=== PATIENT | female | born 1940 | race Caucasian/White ===

== ENCOUNTER → 2016-08-06 | Outpatient (CLI) | payer OTHER ==
[~2016-08-06] MED LIST: ACCUPRIL40 MG PO; ACTONEL PO; ADULT LOW DOSE81 MG PO; ALORA1 EAC1 TD; ALPRAZOLAM 0.50.5 M1 PO; ALPRAZOLAM1 M1 PO; AMBIEN 5 MG TABL5 M1 PO; AVAPRO 150 MG150 MG PO; BISOPROLOL FUMAR5 MG PO; BYSTOLIC PO; BYSTOLIC10 MG PO; CARAFATE 1 GM TA1 G1 PO; CARBAMAZEPINE100 MG PO; CARBAMAZEPINE200 M2 PO; CARDIZEM CD240 MG PO; CITRATE OF MAG296 ML PO; CLONIDINE PO; COLACE100 MG PO; ESTRACE0.5 MG PO; GLUCOPHAGE500 MG PO; GLUCOTROL5 MG PO; HYDRALAZINE 2525 M1 PO; HYDRALAZINE 5050 MG PO; HYDROCHLOROTHIA25 M1 PO; JANUMET XR 1001 EACH PO; LUNESTA2 MG PO; MIRALAX255 GM PO; NEXIUM40 MG; NICOTINE TRANSD21 M1 TD; NORCO 5-325 TA1 EACH PO; NORVASC5 MG PO; ONDANSETRON HCL4 M2 PO; PHENERGAN 25 MG25 M1 PO; PINDOLOL PO; PROTONIX40 M4 PO; PROTONIX40 MG PO; RESTORIL30 MG PO; SERTRALINE HCL50 MG PO; TAZTIA XT PO; VICODIN 5-5001 EACH PO; VIOKASE PO; VITAMIN D1000 UNI1 PO; XANAX 0.5 MG0.5 MG PO; ZANTAC 150MG T150 M1 PO; ZOCOR 20 MG TAB20 M1 PO; ZOFRAN 4 MG ORAL4 MG PO; ZOFRAN ODT4 MG PO; ZOFRAN4 MG PO; ZOLOFT 50 MG TA50 M1 PO; ZPAK PO
== END ==
LOC: RAD 07:46
DX: R92.8 Other abnormal and inconclusive findings on diagnostic imaging of breast (principal)

== ENCOUNTER → 2016-10-13 | Outpatient (CLI) | payer OTHER ==
[~2016-10-13] VITALS: Ht 167.6 cm; Wt 81.2 kg
[~2016-10-13] MED LIST changes: +ANASTROZOLE1 MG PO; +AUGMENTIN 500-1 EACH PO; +HYDROCORTISONE30 G9 RECTAL; +SERTRALINE HCL100 MG PO
--- NOTE | ~2016-10-13 | S ---
[facility] [place] [address] SURGICAL PATH RPT PROCEDURE Name: TOMOLGAAZEB CRISTIN Room #: REG CL M.Theresa.#: [id number] Admission: 10/13/16 Date of : 38 Discharge: Report #: [id number] Path Case #: [id number] PATHOLOGY REPORT COLLECTION DATE: 10/13/2016 RECEIVED DATE: 10/13/2016 SUBMITTING PHYS: Dr. Tomy Gil OTHER PHYS: Dr. Edward Rubin SPECIMEN(S) RECEIVED: A.Bx of distal esophagus * * * * * * * * * * * * FINAL DIAGNOSIS: Esophagus, distal biopsy: - Squamocolumnar epithelium with mild chronic submucosal inflammation. - No evidence of intestinal metaplasia. (SKM:[place] [employer]; 10/14/2016) PATHOLOGIST: Philip Kamara M.D. REPORT ELECTRONICALLY SIGNED BY: Philip Kamara M.D. DATE/TIME: 10/14/2016 11:30 * * * * * * * * * * * * GROSS PATHOLOGY: Received in formalin labeled "Azeb Tom, distal esophagus, biopsy," are 2 segments of antoine soft tissue measuring 0.5 cm in aggregate dimensions and ranging from 0.2 to 0.3 cm in maximum dimension. The specimen is submitted entirely in cassette A1. (SNA; 10/13/2016) CLINICAL HISTORY: History of Zamora's INITIAL CPT CODE(S): A; 85802 Professional services performed by [facility] at [facility] [employer]) [place], [place] [address] Technical services performed by [facility] at [address] [place] [address], [address] [address]. [facility] [address] [place] [address] SURGICAL PATH RPT PROCEDURE Name: AZEB TOM Room #: REG OMAR Wise#: [id number] Admission: 10/13/16 Date of : 39 Discharge: Report #: [id number] Path Case #: [id number] [facility] [address] [address] PHONE: [phone] DIRECTOR: Milton Elena M.D. * * * END OF REPORT * * *
== END | disposition home or self-care (01) ==
LOC: GI 08:04
DX: K22.70 Barrett's esophagus without dysplasia (principal); K21.9 Gastro-esophageal reflux disease without esophagitis
CPT/HCPCS: 62110; 62900

== ENCOUNTER → 2017-03-03 | Outpatient (CLI) | payer OTHER ==
[~2017-03-03] VITALS: Ht 167.6 cm; Wt 67.5 kg
[~2017-03-03] MED LIST changes: +CYMBALTA30 MG PO; +MOBIC7.5 MG PO; +TRAMADOL 50 MG50 MG PO
--- NOTE | ~2017-03-03 | HPC ---
[facility] [place] [address] PAIN MANAGEMENT CONSULTATION Name: BENDERAMI CEJAR CRISTIN Room #: REG [facility].#: [id number] Admission: 03/03/17 Attend Phys: Ra Boston DO Discharge: Date of : 39 Report #: [id number] THIS REPORT FOR: //name// CC: Edward Boston The patient is a 76-year-old female prior seen in the pain on clinic 01/10/2017 diagnosed with bilateral SI joint dysfunction, thoracolumbar scoliosis and spondylosis, lumbar radiculopathy secondary to spinal stenosis and history of cervical radiculopathy. The patient was originally consulted on 12/31/2016. We progressed to bilateral SI joint injections at last visit (01/10/2017). The patient returns to the pain clinic today noting she had about a 100% relief following the bilateral SI joint injections for 6 weeks. Pain has recurred, 7 on a 10. She rates the pain 7 on a VAS. Pain is a little different though, it is noted more in the low back area and some radiation into the left thigh. She notes the pain is exacerbated with standing and walking. PHYSICAL EXAMINATION: Shows 76-year-old female, BMI is 24 kilograms per meter squared. Vital signs stable. Rises from chair using armrest. Tenderness over the SI joints is diminished. Pain is noted at the L4 area and below. Pain is exacerbated with rotation and side bending. Truman test is negative. Straight leg raise is negative. ASSESSMENT: Sacroiliac joint dysfunction by clinical exam, the patient had 100% relief for about 6 weeks. Pain began to recur. Now it appears to be a little higher; however, then prior exam and Truman test is negative at this time. ASSESSMENT: Symptomatic lumbar spondylosis in a patient with significant thoracolumbar scoliosis. RECOMMENDATION: After discussion with the patient today, we have elected to move forward with bilateral L4-L5 and L5-S1 facet joint injections under fluoroscopy. We will see if we can get a little further improvement. We will have the patient follow up in about 3-4 weeks for reevaluation. We will consider referral for SI joint fusion if the facets do not afford good relief given the excellent relief with the SI joint injection at last visit. ASSESSMENT: Symptomatic lumbar spondylosis. PROCEDURE: Bilateral L4-L5 and L5-S1 facet joint injection under fluoroscopy. PROCEDURE: After written informed consent was obtained, the patient was taken to the fluoroscopy suite and placed in prone position. After sterile prep and drape, skin was raised. A 22-gauge stylet needle was placed to contact the inferior aspect of the left L4-L5 and left L5-S1 facet joint. Negative [address] [address] PAIN MANAGEMENT CONSULTATION Name: AZEB BENDER Room #: REG OMAR Wise#: [id number] Admission: 03/03/17 Attend Phys: Ra Boston DO Discharge: Date of : 39 Report #: [id number] aspiration was accomplished, 20 mg triamcinolone plus 1 mL of 0.5% preservative free bupivacaine was injected. [place] were removed. C-arm was turned oblique to the right and the procedure was repeated at the right L4-L5 and L5-S1 facet joints. After all four needles were removed, the area was cleansed and Band-Aids applied. The patient was monitored for an appropriate period of time, allowed to ambulate to recovery room, discharge in good and stable condition. The patient will monitor pain score Fluoroscopy time was approximately 20 seconds. <ELECTRONICALLY SIGNED> By: Ra Boston DO 03/04/17 0650 1610 0518 Ra Boston DO /nt
[2017-03-03 10:05] VITALS: BP 121/75
== END | disposition home or self-care (01) ==
LOC: PAIN 07:03
DX: M47.816 Spondylosis without myelopathy or radiculopathy, lumbar region (principal); M53.3 Sacrococcygeal disorders, not elsewhere classified; M41.85 Other forms of scoliosis, thoracolumbar region; G89.29 Other chronic pain; F17.210 Nicotine dependence, cigarettes, uncomplicated; Z88.2 Allergy status to sulfonamides; Z88.0 Allergy status to penicillin; Z79.899 Other long term (current) drug therapy; Z98.890 Other specified postprocedural states

== ENCOUNTER → 2017-04-08 | Outpatient (CLI) | payer OTHER ==
[~2017-04-08] VITALS: Ht 167.6 cm; Wt 68.0 kg
[~2017-04-08] MED LIST changes: -CYMBALTA30 MG PO; +CYMBALTA60 MG PO; +ZANAFLEX2 MG PO
--- NOTE | ~2017-04-08 | HPC ---
[facility] [place] [address] PAIN MANAGEMENT CONSULTATION Name: NAPOLEONAZEBABDULKADIR AMARAL Room #: REG [facility] [id number] Admission: 04/08/17 Attend Phys: Ra Boston DO Discharge: Date of : 39 Report #: [id number] THIS REPORT FOR: //name// CC: Edward Boston PAIN CLINIC NOTE The patient is a 76-year-old female, prior seen on 03/03/2017, diagnosed with thoracolumbar scoliosis, spondylosis, history of lumbar radiculopathy secondary to spinal stenosis, history of cervical radiculopathy, SI mediated pain, and myofascial pain. We did L4-L5 and L5-S1 facet joint injections at last visit. Prior we done bilateral SI joint injections back in December. Returns to pain clinic today, the patient notes that the lumbar facet joint injections afforded 80% relief for 3-4 weeks. Pain is continuing to the much larger area, has a lot of pain in the right mid back from about T7 or T8 down to the sacrum. She has trigger points in the thoracic paravertebral muscles, lumbar paravertebral muscles overlying latissimus dorsi and the infraspinatus muscle all on the right. Rates the pain an 8 on a VAS. She has a history of lumbar facet arthrosis due to scoliosis, no other OA or RA is applicable. BMI is 24.2 kilograms per meter squared. Vital signs are stable. Again, pain intensity is 8 on a VAS. She has not fallen in the last 3 months. She is hypertensive and medicines were reconciled. She does not use chronic opiates. ASSESSMENT: Component of myofascial pain with ongoing thoracolumbar scoliosis and spondylosis. RECOMMENDATIONS: 1. Trigger point injections x 4 today. 2. Increase Cymbalta from 30 to 60 mg. 3. We will add tizanidine 2 mg t.i.d. for spasm. Ice to the area, follow up p.r.n. PROCEDURE: Trigger point injections x 4. PROCEDURE: After written informed consent was obtained, the patient was placed in the prone position. Skin overlying the tender area was cleansed with alcohol. A 25-gauge needle was used to inject 40 mg triamcinolone plus 5 mL of 0.5% preservative-free bupivacaine plus 5 mL of 1.5% preservative-free Xylocaine with 1:200,000 epinephrine into 4 discrete trigger points including the right thoracic paravertebral muscles (T7 to T12. Right lumbar paravertebral muscles (L1 through L3) overlying latissimus dorsi and right infraspinatus muscle groups. [address] [address] PAIN MANAGEMENT CONSULTATION Name: AZEB BENDER Room #: REG [facility]#: [id number] Admission: 04/08/17 Attend Phys: Ra Boston DO Discharge: Date of : 39 Report #: [id number] [place] were removed. The area was cleansed and Band-Aids applied. The patient monitored for an appropriate period of time, discharged in good and stable condition, noting incremental improvement in baseline pain. <ELECTRONICALLY SIGNED> By: Ra Boston DO 04/11/17 1026 1324 2240 Ra Boston DO /nt
[2017-04-08 11:20] VITALS: BP 102/61
== END | disposition home or self-care (01) ==
LOC: PAIN 03-24 10:52
DX: M79.1 Myalgia (principal); M41.85 Other forms of scoliosis, thoracolumbar region; M47.895 Other spondylosis, thoracolumbar region; G89.29 Other chronic pain; F17.210 Nicotine dependence, cigarettes, uncomplicated; Z88.2 Allergy status to sulfonamides; Z79.899 Other long term (current) drug therapy; Z88.8 Allergy status to other drugs, medicaments and biological substances; Z98.890 Other specified postprocedural states

== ENCOUNTER → 2017-04-14 | Outpatient (CLI) | payer OTHER | LOC: RAD 00:25 | DX: C50.912 Malignant neoplasm of unspecified site of left female breast (principal); Z98.890 Other specified postprocedural states ==

== ENCOUNTER → 2017-07-11 | Outpatient (CLI) | payer OTHER ==
[~2017-07-11] VITALS: Ht 167.6 cm; Wt 76.7 kg
--- NOTE | ~2017-07-11 | HPC ---
[facility] [place] [address] PAIN MANAGEMENT CONSULTATION Name: NAPOLEONAZEB JANE Room #: [facility] [id number] Admission: 07/11/17 Attend Phys: Ra Boston DO Discharge: Date of : 39 Report #: [id number] THIS REPORT FOR: //name// CC: Edward Boston The patient is a 76-year-old female prior seen in the pain clinic on 04/08/2017. Typically treated for thoracolumbar scoliosis, spondylosis, history of lumbar radiculopathy secondary to spinal stenosis and SI mediated pain. We have prior done L4-L5 and L5-S1 facet joint injections back in February. Last visit, we did some trigger point injections for myofascial pain. The patient returns to the pain clinic today noting prior injections did afford good relief. She still, however, has significant pain in the midthoracic area. Pain is exacerbated with standing, walking and bending. She rates her pain as a 6 on a VAS. She specifically indicates 70% relief for 2 months from prior trigger point injections. PHYSICAL EXAMINATION: Shows 76-year-old female, BMI is 27.3 kilograms per meter squared. Blood pressure 132/64, pulse 53 and respirations 14. Rises from chair using armrest. Lower extremity strength is generally symmetric. Marked thoracolumbar scoliosis and spondylosis with significant muscle spasm, tenderness in the right thoracic paravertebral muscles, upper lumbar paravertebral muscles and overlying latissimus dorsi. Rotation does exacerbate pain somewhat. We reviewed diagnostic findings including thoracolumbar cervical x-rays from 12/10/2016. She has levoscoliosis of the thoracic spine with apex of the curve at T8, dextrocurvature of the thoracolumbar spine centered at L1-L2. Compensatory levocurvature again at L5-S1. Moderate to severe right T8-T9 neural foraminal stenosis. ASSESSMENT: Symptomatic thoracolumbar scoliosis and spondylosis, myofascial pain component, possible component of right thoracic radicular pain. RECOMMENDATIONS: I had a discussion with the patient today. We elected to proceed with trigger point injections x 3, right thoracic paravertebral muscles, upper lumbar paravertebral muscles and overlying latissimus dorsi. Continue with ice, range of motion and stretching. The patient is doing well on Cymbalta 60 mg 1 a day. She believes that her primary care physician, Dr. Rubin has taken overriding for this. If the pharmacy calls, we will be happy to phone in a prescription for Cymbalta 60 mg 1 a day, dispensed 30 tablets with 5 refills. ASSESSMENT: Symptomatic myofascial pain/ PROCEDURE: Trigger point injections x 3. [address] [address] PAIN MANAGEMENT CONSULTATION Name: AEZB BENDER Room #: REG CLI Frandy#: [id number] Admission: 07/11/17 Attend Phys: Ra Boston DO Discharge: Date of : 39 Report #: [id number] PROCEDURE: After written informed consent was obtained, the patient was placed in the prone position. Three discrete muscle groups were identified. 1. The mid to lower thoracic paravertebral muscles 2. Upper lumbar paravertebral muscles. 3. Overlying latissimus dorsi on the right side were identified, cleansed with alcohol. A 25-gauge needle was used to inject a total of 40 mg triamcinolone plus 5 mL of 0.5% preservative-free bupivacaine plus 5 mL of 1.5% preservative-free lidocaine with 1:200,000 epinephrine. Injectate was dispensed equally amongst the three muscle groups. All needles were removed. The area was cleansed. Band-Aid was applied. The patient was told to use ice to the area today. Discharged in good and stable condition noting dramatic improvement of baseline pain. <ELECTRONICALLY SIGNED> By: Ra Boston DO 07/13/17 0803 1236 2130 Ra Boston DO /nt
[2017-07-11 10:39] VITALS: BP 132/64
== END | disposition home or self-care (01) ==
LOC: PAIN 08:04
DX: M79.1 Myalgia (principal); G89.29 Other chronic pain; M41.85 Other forms of scoliosis, thoracolumbar region; M47.896 Other spondylosis, lumbar region; F17.210 Nicotine dependence, cigarettes, uncomplicated; Z88.2 Allergy status to sulfonamides; Z98.890 Other specified postprocedural states; Z88.8 Allergy status to other drugs, medicaments and biological substances; Z79.899 Other long term (current) drug therapy

== ENCOUNTER → 2017-09-27 | Outpatient (CLI) | payer OTHER | LOC: RAD | DX: C50.912 Malignant neoplasm of unspecified site of left female breast (principal) ==

== ENCOUNTER → 2018-08-28 | Outpatient (CLI) | payer OTHER | LOC: RAD 00:46 | DX: C50.112 Malignant neoplasm of central portion of left female breast (principal); R92.2 Inconclusive mammogram; Z85.038 Personal history of other malignant neoplasm of large intestine ==

== ENCOUNTER → 2018-10-04 | Outpatient (CLI) | payer OTHER ==
[~2018-10-04] VITALS: Ht 167.6 cm; Wt 79.9 kg
--- NOTE | ~2018-10-04 | HPC ---
[facility] [place] [address] PAIN MANAGEMENT CONSULTATION Name: AZEB BENDER Room #: REG [facility].#: [id number] Admission: 10/04/18 ������������������ Attend Phys: Sameer Boston DO Discharge: ������������������ Date of : 39 Report #: [id number] THIS REPORT FOR: //name// CC: Shahab Leon [facility] DATE OF SERVICE: 10/04/2018 REFERRING PHYSICIAN: Dr. Solano. CHIEF COMPLAINT: Bilateral upper buttock pain, posterolateral thigh pain. HISTORY OF PRESENT ILLNESS: As you know, the patient is a 78-year-old female who returns today in followup visit with recurrent bilateral upper buttock and posterolateral thigh pain. She was treated by my partner, Dr. aR Boston in 2017 for bilateral sacroiliac joint dysfunction and facet arthropathy of the lumbar spine. She did very well with the bilateral SI joint injections reporting near 100% improvement in overall pain in that area. She returns today in followup visit with recurrence of bilateral SI joint dysfunction. She is complaining of pain level of 7/10. She has not sought further evaluation to her PCP and has been lost to follow up visit to our clinic since trigger point injections that were provided a year and a half ago. She returns today to begin the process of preapproval for bilateral SI joint injections under fluoroscopic guidance to address sacroiliac insufficiency. The patient is describing pain as chronic and aching in sensation, exacerbated with standing, cooking, vacuuming and improves with lying down and sitting. The patient returns today to begin the process of preapproval. ALLERGIES: SULFA, CLAVULANIC ACID, AMOXICILLIN. CURRENT MEDICATIONS: Duloxetine 60 mg once a day, anastrozole 1 mg once a day, pantoprazole 40 mg per day, cholecalciferol 1000 units per day, Janumet 100/1000 mg once a day, irbesartan 150 mg per day, amlodipine 5 mg per day, hydralazine 50 mg t.i.d., alprazolam 0.5 mg p.r.n., and temazepam 30 mg p.o. at bedtime. SOCIAL HISTORY: The patient denies tobacco, alcohol, IV or illicit drug use. She is unaccompanied today. She is retired. IMAGING: No imaging available. PQRS: The patient has known osteoarthritic changes of the lumbar spine, bilateral SI joints. No rheumatoid arthritis. She is placing pain intensity at 7/10. She is not a fall risk, has not had a fall in the last 3 months. She is not on blood thinners, but is treated for hypertension. She is not on chronic [address] [address] PAIN MANAGEMENT CONSULTATION Name: AZEB BENDER Room #: REG CL M.Theresa.#: [id number] Admission: 10/04/18 ������������������ Attend Phys: Sameer Boston DO Discharge: ������������������ Date of : 39 Report #: [id number] opioids, but does have a low to moderate risk of opioid addiction. She is placing pain impact score at 51/70, indicating severe interference of daily activities secondary to pain. PHYSICAL EXAMINATION: VITAL SIGNS: Blood pressure 140/73, pulse is 60, respiratory rate 16 and unlabored. The patient is 97% on room air. Height 5 feet 6 inches tall, weight 176.2 pounds, BMI calculated 28.5. GENERAL: Well-developed, well-nourished, well-hydrated 78-year-old female, appears her stated age. She is placing current pain score at 7/10. HEENT: Normocephalic, atraumatic. Pupils equal, round, reactive to light. Extraocular muscles are intact. Speech is fluent. LUNGS: Clear. There is prolonged expiratory phase. CARDIOVASCULAR: Regular. No appreciable gallop or rub. ABDOMEN: Soft. Normoactive bowel sounds. EXTREMITIES: Show no clubbing, no cyanosis, and no edema. MUSCULOSKELETAL: There is some palpatory tenderness over the bilateral SI joint, right greater than left. Deep palpation of the area causes intensification of pain. Seated straight leg raising negative. Supine straight leg raising negative. Truman test is positive only for SI joint dysfunction, noted bilaterally, right greater than left. Lumbar provocation testing is met with increasing pain and restriction of motion secondary to pain with extension and rotation as well as lateral flexion. Forward flexion of the lumbar spine does tend to improve overall symptoms. Ankle clonus is negative. Babinski is negative. Muscle bulk and tone is symmetrical in lower extremities, intact to light touch from L1 through S2 dermatomes. ASSESSMENT: 1. 1. Bilateral sacroiliac joint dysfunction. 2. 2. Bilateral sacroiliac joint osteoarthritis. 3. 3. Lumbosacral spondylosis without radiculopathy. 4. 4. Lumbar facet arthropathy. 5. 5. Chronic intractable pain. PLAN: 1. 1. The patient has returned today in followup visit with bilateral SI joint dysfunction and facet arthropathy of the lumbar spine. She indicates the pain over the bilateral SI joints is the most problematic of her symptoms. She indicates that she underwent SI joint injections with Dr. Ra Boston nearly 2 years ago with good benefit, noting near 100% improvement in overall pain. She has denied new injury or trauma that may have led to symptom reoccurrence. She returns today in followup visit to discuss the possibility of undergoing SI joint injections bilaterally, also to address the facet arthropathy of the lumbar spine, mainly centered around the L4-L5 and L5-S1 facet joints. We discussed with the patient the options for treatment for bilateral SI joint dysfunction today, the following was discussed with the patient. [facility] [address] [place] [address] PAIN MANAGEMENT CONSULTATION Name: AZEB BENDER Room #: REG OMAR Wise#: [id number] Admission: 10/04/18 ������������������ Attend Phys: Sameer Boston DO Discharge: ������������������ Date of : 39 Report #: [id number] We discussed physical therapy, stretching exercises and any core strengthening she may do as well as weight loss. This will alleviate some of the pain the patient is experiencing and improve functional mobility. We discussed medication management utilizing anti-inflammatory medication on a consistent basis with intermittent pain medications. We discussed intra-articular SI joint injections as a treatment option as well as fusion of the SI joints. After reviewing risks and benefits of all the proposed treatment options, the patient chose to move forward with preauthorization to undergo bilateral SI joint injections. 1. 2. The patient was advised that third green party payer restrictions require that authorization be obtained before the patient can undergo a series of bilateral SI joint injections. Authorization could take anywhere from 4-7 working days. We will begin this process immediately, contact the patient once this is completed to have her undergo this procedure. 2. 3. In regards to the patient's bilateral facet arthropathy pain, it appears that she is having symptoms radiating from the L4-L5 and L5-S1 level. There are treatment options available for bilateral facet pain and these include physical therapy, stretching exercise, core strengthening, also medication management utilizing anti-inflammatory therapy. We discussed intra-articular facet injections, medial branch nerve blocks, radiofrequency lesioning as a more aggressive treatment option and ultimately surgical decompression with fusion. After reviewing the risks and benefits of all these proposed treatment options, the patient chose to consider intra-articular facet injections, but at this time, she is more concerned about the bilateral SI joint dysfunction, which is her main pain generator and she is hopeful to undergo an injection to improve those symptoms before considering treatment options for the bilateral facet arthropathy. 3. 4. No medication changes made at today's visit. The patient will continue current medical therapy as previously prescribed. 4. 5. We will see the patient back in followup visit once we have achieved authorization for bilateral SI joint injections under fluoroscopic guidance. ��������������������������������������������� ���������������������������������������� By: ��������������������������������������������� 1059 1353 Sameer Boston DO /nt
[2018-10-04 10:15] VITALS: BP 140/73
--- NOTE | 2018-10-04 10:40 | NUR ---
Pain Clinic Assessment: 1. History of Osteoarthritis: Not Applicable History of Rheumatoid Arthritis: Not Applicable 2. Height: 5 ft. 6 in. 167.6 cm. Weight: 176.2 lb. oz. 79.924 kg. Patient's BMI: 28.5 3. Vital Signs: BP: 140/73 Pulse: 60 Resp: 16 Temp: 02 Sat: 97 ECG Mon: 4. Pain Intensity: 7 5. Fall Risk: Dizziness: N Needs help standing or walking: N Fallen in the last 3 months: N Fall risk comments: 6. Patient on Blood Thinner: None 7. History of Hypertension: Y 8. Opioid Therapy greater than 6 weeks: N Opiate Contract Signed: 9. Risk Assessment Tool Provided: LOW RISK 2/3 10. Functional Assessment Tool: 51 11. Recreational Drug Use: Never Drug Type: Tobacco Use: Current Every Day Smoker Tobacco Type: Cigarettes Amount or Packs/day: 1/2 How Many Years: Alcohol Use: No Frequency: Quant:
== END ==
LOC: PAIN 06:52
DX: M47.817 Spondylosis without myelopathy or radiculopathy, lumbosacral region (principal); M47.818 Spondylosis without myelopathy or radiculopathy, sacral and sacrococcygeal region; M12.88 Other specific arthropathies, not elsewhere classified, other specified site; G89.4 Chronic pain syndrome; Z88.2 Allergy status to sulfonamides; Z88.8 Allergy status to other drugs, medicaments and biological substances; Z79.899 Other long term (current) drug therapy; Z79.811 Long term (current) use of aromatase inhibitors

== ENCOUNTER → 2018-11-01 | Outpatient (CLI) | payer OTHER ==
[~2018-11-01] VITALS: Ht 167.6 cm; Wt 79.9 kg
[2018-11-01 10:23] VITALS: BP 124/58
--- NOTE | 2018-11-01 10:32 | NUR ---
Pain Clinic Assessment: 1. History of Osteoarthritis: Not Applicable History of Rheumatoid Arthritis: Not Applicable 2. Height: 5 ft. 6 in. 167.6 cm. Weight: 176.2 lb. oz. 79.924 kg. Patient's BMI: 28.5 3. Vital Signs: BP: 124/58 Pulse: 51 Resp: 16 Temp: 02 Sat: 100 ECG Mon: 4. Pain Intensity: 5 5. Fall Risk: Dizziness: N Needs help standing or walking: N Fallen in the last 3 months: N Fall risk comments: 6. Patient on Blood Thinner: None 7. History of Hypertension: Y 8. Opioid Therapy greater than 6 weeks: N Opiate Contract Signed: 9. Risk Assessment Tool Provided: LOW RISK 2/3 10. Functional Assessment Tool: 51 11. Recreational Drug Use: Never Drug Type: Tobacco Use: Current Every Day Smoker Tobacco Type: Cigarettes Amount or Packs/day: 1/2 PACK How Many Years: Alcohol Use: No Frequency: Quant:
--- NOTE | 2018-11-14 11:15 | HPC ---
[facility] [address] [place] [address] PAIN MANAGEMENT CONSULTATION Name: AZEB BENDER Room #: REG [facility].#: [id number] Admission: 11/01/18 Attend Phys: Sameer Boston DO Discharge: Date of : 39 Report #: [id number] THIS REPORT FOR: //name// CC: Shahab Rubin MD DATE OF SERVICE: 11/01/2018 CHIEF COMPLAINT: Bilateral upper buttocks and posterolateral thigh pain. HISTORY OF PRESENT ILLNESS: As you know, the patient is a 78-year-old female who has been followed by my partner, Dr. Ra Boston for an extended period of time, undergoing bilateral SI joint injections under fluoroscopic guidance to address bilateral SI joint dysfunction. She returns today in followup visit to undergo next in the series of injections. She is placing pain score 5/10. She denies injury or trauma that may have led to symptom reoccurrence. She indicates good efficacy with bilateral SI joint injections, the most recent series of injections provided 70% improvement in overall pain lasting until just recently. She returns today in followup visit to undergo next in the series of bilateral SI joint injections. ALLERGIES: SULFA, CLAVULANIC ACID, AMOXICILLIN. CURRENT MEDICATIONS: Duloxetine, anastrozole, pantoprazole, cholecalciferol, Janumet, irbesartan, amlodipine, hydralazine, alprazolam, temazepam. SOCIAL HISTORY: The patient denies tobacco, alcohol, IV or illicit drug use. She is unaccompanied today. IMAGING: No new imaging available. PQRS: The patient has known arthritic changes of the lumbar spine, bilateral SI joints. No rheumatoid arthritis. She is placing pain intensity at 5/10. She is not a fall risk, has not had a fall in last 3 months. She is on blood thinners. She is treated for hypertension. She is not on chronic opioids, has a low opioid addiction potential and placing pain impact score of 51/70, severe interference of daily activities secondary to pain. PHYSICAL EXAMINATION: VITAL SIGNS: Blood pressure 124/58, pulse is 51, respiratory rate 16 and unlabored. The patient is 100% on room air. Height 5 feet 6 inches tall, weight 176.2 pounds, BMI calculated 28.5. GENERAL: Well-developed, well-nourished, well-hydrated 78-year-old female appearing stated age, pain is rated today at 5/10. [address] [address] PAIN MANAGEMENT CONSULTATION Name: AZEB BENDER Room #: REG CLI [facility].#: [id number] Admission: 11/01/18 Attend Phys: Sameer Boston DO Discharge: Date of : 39 Report #: [id number] HEENT: Normocephalic, atraumatic. Speech fluent. EXTREMITIES: Show no clubbing, no cyanosis, and no edema. MUSCULOSKELETAL: Tenderness to palpation over the bilateral SI joints is again noted, right greater than left once again today. Deep palpation of the area causes intensification of pain in the patient's typical radiating pain pattern. Seated straight leg raising is negative. Supine straight leg raising is negative. Truman's test is positive for SI joint dysfunction. ASSESSMENT: 1. Bilateral sacroiliac joint dysfunction. 2. Bilateral sacroiliac joint osteoarthritis. 3. Lumbosacral spondylosis without radicular symptoms. 4. Facet arthropathy of the lumbar spine. 5. Chronic intractable pain. PLAN: 1. The patient returns today in followup visit to undergo bilateral SI joint injections under fluoroscopic guidance. The patient has had good efficacy with these in the past, returning today to undergo next in the series. She has been advised risks and benefits of the procedure, states understood and wished to proceed. 2. No medication changes made at today's visit. The patient will continue current medical therapy as previously prescribed. 3. We will see the patient back in followup visit on an as needed basis for possible next in the series of bilateral SI joint injections. DESCRIPTION OF PROCEDURE: Bilateral sacroiliac joint injections under fluoroscopic guidance. After obtaining written consent, the patient was taken back to fluoroscopy suite, placed in prone position with pillow under abdomen to decrease lumbar lordosis. The skin of the gluteal sacral area was then prepped and draped in aseptic fashion using chlorhexidine. A medial to lateral projection allowed separation of the anterior and posterior branches of the joint space to be visualized. Skin and subcutaneous tissue overlying the target sites of injections were then anesthetized with 3 mL of 1% lidocaine using a 27-gauge, 1-1/4 inch needle. A two 22-gauge 3-1/2 inch spinal needles with bent tips were directed to the inferior aspect of the sacroiliac joint on the left and on the right using a posterior approach. A "giving away" at the needle hubs were noted once the dorsal sacroiliac and interosseous ligaments were engaged. After negative aspiration for heme at each site, 0.3 mL of Omnipaque injected demonstrating excellent arthrograms both on the left and right side. Provocation responses consistent of intense buttock pain were negative. After negative aspiration for heme, 3 mL of a solution containing 1 mL 40 mg per mL, 40 mg total triamcinolone and 2 mL bupivacaine 0.5% was [address] [place] [address] PAIN MANAGEMENT CONSULTATION Name: NAPOLEONAZEBABDULKADIR AMARAL Room #: REG [facility].#: [id number] Admission: 11/01/18 Attend Phys: Sameer Boston DO Discharge: Date of : 39 Report #: [id number] injected at each site. [place] were then retracted approximately half way, flushed with 1 mL of 1% lidocaine and then removed. Sterile bandage placed over injection site. No new motor deficits present in the lower extremity either on the left or right side after procedure. The patient tolerated the procedure well, carefully escorted to recovery room in stable condition. No apparent complications. After meeting discharge criteria, the patient discharged home. <ELECTRONICALLY SIGNED> By: Sameer Boston DO 11/14/18 1115 [id number] 1245 Sameer Boston DO /nt
== END | disposition home or self-care (01) ==
LOC: PAIN 06:45
DX: M53.3 Sacrococcygeal disorders, not elsewhere classified (principal); M47.817 Spondylosis without myelopathy or radiculopathy, lumbosacral region; M47.896 Other spondylosis, lumbar region; G89.29 Other chronic pain; I10 Essential (primary) hypertension; F17.210 Nicotine dependence, cigarettes, uncomplicated; Z88.2 Allergy status to sulfonamides; Z88.8 Allergy status to other drugs, medicaments and biological substances; Z79.899 Other long term (current) drug therapy; Z79.01 Long term (current) use of anticoagulants; Z98.890 Other specified postprocedural states

== ENCOUNTER → 2019-01-16 | Outpatient (CLI) | payer OTHER ==
[~2019-01-16] VITALS: Ht 167.6 cm; Wt 76.3 kg
[~2019-01-16] MED LIST changes: +ASPIR 8181 M1 PO
[2019-01-16 13:50] VITALS: BP 146/93
--- NOTE | 2019-01-16 14:02 | NUR ---
Pain Clinic Assessment: 1. History of Osteoarthritis: BACK History of Rheumatoid Arthritis: Not Applicable 2. Height: 5 ft. 6 in. 167.6 cm. Weight: 168.2 lb. oz. 76.295 kg. Patient's BMI: 27.2 3. Vital Signs: BP: 146/93 Pulse: 110 Resp: 18 Temp: 02 Sat: 95 ECG Mon: 4. Pain Intensity: 10 5. Fall Risk: Dizziness: N Needs help standing or walking: N Fallen in the last 3 months: Y Fall risk comments: 6. Patient on Blood Thinner: None 7. History of Hypertension: Y 8. Opioid Therapy greater than 6 weeks: N Opiate Contract Signed: 9. Risk Assessment Tool Provided: LOW RISK 2/3 10. Functional Assessment Tool: 51 11. Recreational Drug Use: Never Drug Type: Tobacco Use: Former Smoker Tobacco Type: Amount or Packs/day: How Many Years: Alcohol Use: No Frequency: Quant:
--- NOTE | 2019-01-23 13:04 | HPC ---
[facility] [address] [place] [address] PAIN MANAGEMENT CONSULTATION Name: AZEB BENDER Room #: REG [facility].#: [id number] Admission: 01/16/19 Attend Phys: Sameer Boston DO Discharge: Date of : 39 Report #: [id number] THIS REPORT FOR: //name// CC: Shahab Wilhelm DATE OF SERVICE: 01/16/2019 CHIEF COMPLAINT: Myofascial pain. HISTORY OF PRESENT ILLNESS: As you know, the patient is a 78-year-old female who returns today in followup visit with myofascial pain. She has undergone trigger point injections with Dr. Ra Boston in the past to address the mid to low back myofascial symptoms secondary to her significant spinal stenosis. She is able to localize the pain directly over a tense area of the thoracolumbar junction on the right, negative on the left. She indicates pain level today at about 10/10. She has requested to undergo trigger point injections to address this issue. She has done very well with trigger points in the past and is hopeful to see similar improvement. ALLERGIES: SULFA, CLAVULANIC ACID, AMOXICILLIN. CURRENT MEDICATIONS: Aspirin 81 mg per day, duloxetine 60 mg once a day, anastrozole 1 mg once a day, pantoprazole 40 mg per day, cholecalciferol 1000 units per day, Janumet 100/1000 mg once a day, irbesartan 150 mg per day, amlodipine 5 mg per day, hydralazine 50 mg 3 times a day, alprazolam 0.5 mg t.i.d. p.r.n., temazepam 30 mg p.o. at bedtime. SOCIAL HISTORY: The patient denies current tobacco use, IV or illicit drug use. Denies any alcohol use. She is unaccompanied today. IMAGING: No new imaging available. PQRS: The patient has known arthritic changes of the thoracic spine, lumbar spine, bilateral SI joints and bilateral hips, no rheumatoid arthritis. She is placing pain intensity today 10/. She is not a fall risk typically, but she has had a fall in last few months. She is not utilizing any type of ambulatory device. She has been advised to do so. She is not on blood thinners, but is treated for hypertension. She is not on chronic opioid. She has a low opiate addiction potential based on our assessment tool. Pain impact score 51/70 indicating severe interference of daily activities secondary to pain. PHYSICAL EXAMINATION: VITAL SIGNS: Blood pressure 146/93, pulse 110, respiratory rate 18 and [facility] [address] [place] [address] PAIN MANAGEMENT CONSULTATION Name: AZEB BENDER Room #: REG [facility] M..#: [id number] Admission: 01/16/19 Attend Phys: Sameer Boston DO Discharge: Date of : 39 Report #: [id number] unlabored. The patient is 95% on room air. Height 5 feet 6 inches tall, weight 168.2 pounds, BMI calculated 27.2. GENERAL: Well-developed, well-nourished, well-hydrated, severely kyphotic and scoliotic 78-year-old female appearing stated age. She is in no acute distress, awake, alert and oriented x 3. Current pain score is rated at 10/10. HEENT: Normocephalic, atraumatic. Pupils equal, round, reactive to light. EXTREMITIES: Show no clubbing, no cyanosis, no edema. MUSCULOSKELETAL: There is palpatory tenderness over the thoracolumbar junction on the right, negative left. There are noted 8 trigger points that cause the patient's typical radiating pain pattern. Multiple tender points in the area. Seated straight leg raising negative. Supine straight leg raising is only positive for axial back pain, no radiation of classic radicular symptoms. ASSESSMENT: 1. Myofascial pain. 2. Idiopathic kyphoscoliosis. 3. Muscle spasms. PLAN: 1. The patient has returned today in followup visit with point specific pain over the thoracolumbar junction on the right. She is placing pain this area 10/10. She has recently had endoscopic lung resection that may have exacerbated symptoms as she has incision sites in and around the area of discomfort. The incisions do appear to be healing well, though there are some sutures that are retained in one of the areas. She is following up with her thoracic surgeon later today for evaluation. The patient is able to place 8 different positions in the thoracolumbar junction on the right that are causing her ongoing pain issues. We have discussed the possibility of having the patient undergo trigger point injections. She has been advised risks and benefits and she states she understood and wished to proceed. 2. No medication changes made at today's visit. The patient will continue current medical therapy as previously prescribed. 3. We will see the patient back in followup visit on an as needed basis for possible repeat trigger point injections. PROCEDURE NOTE DESCRIPTION OF PROCEDURE: Trigger point injections to the right thoracolumbar junction. After obtaining written consent, the patient was placed in a seated position. By palpating using a single finger, 8 trigger points were identified that reproduced the patient's typical radiating pain pattern. Trigger points were located within 2 different muscle groups. Each of the target sites of injections were cleansed using aseptic technique with chlorhexidine. A 27-gauge 1-1/4 inch needle was then advanced towards each of the trigger points until the [facility] [address] [place] [address] PAIN MANAGEMENT CONSULTATION Name: NAPOLEONAZEB AMARAL [id number] Admission: 01/16/19 Attend Phys: Sameer Boston DO Discharge: Date of : 39 Report #: [id number] patient's typical radiating pain pattern was reproduced. After negative aspiration for heme, 1 mL of a solution containing 1 mL, 40 mg per mL, 40 mg total triamcinolone and 7 mL of bupivacaine 0.5% injected in a fanned out distribution at each trigger point for a total volume of 8 mL being given. Sterile bandages were placed over each injection sites. The patient tolerated the procedure well, carefully escorted to recovery room in stable condition. No apparent complications. After meeting our discharge criteria, the patient discharged home. <ELECTRONICALLY SIGNED> By: Sameer Boston DO 01/23/19 1304 0845 1455 Sameer Boston DO /nt
== END | disposition home or self-care (01) ==
LOC: PAIN 06:53
DX: M79.18 Myalgia, other site (principal); M41.85 Other forms of scoliosis, thoracolumbar region; I10 Essential (primary) hypertension; M19.90 Unspecified osteoarthritis, unspecified site; Z79.82 Long term (current) use of aspirin; Z79.899 Other long term (current) drug therapy; Z98.890 Other specified postprocedural states; Z88.8 Allergy status to other drugs, medicaments and biological substances; Z88.2 Allergy status to sulfonamides

== ENCOUNTER → 2019-02-20 | Outpatient (CLI) | payer OTHER ==
[~2019-02-20] VITALS: Ht 167.6 cm; Wt 73.6 kg
[2019-02-20 10:41] VITALS: BP 117/73
--- NOTE | 2019-02-20 10:57 | NUR ---
Pain Clinic Assessment: 1. History of Osteoarthritis: BACK History of Rheumatoid Arthritis: Not Applicable 2. Height: 5 ft. 6 in. 167.6 cm. Weight: 162.2 lb. oz. 73.573 kg. Patient's BMI: 26.2 3. Vital Signs: BP: 117/73 Pulse: 63 Resp: 14 Temp: 02 Sat: 98 ECG Mon: 4. Pain Intensity: 10 5. Fall Risk: Dizziness: N Needs help standing or walking: N Fallen in the last 3 months: N Fall risk comments: 6. Patient on Blood Thinner: None 7. History of Hypertension: Y 8. Opioid Therapy greater than 6 weeks: N Opiate Contract Signed: 9. Risk Assessment Tool Provided: LOW RISK 2/3 10. Functional Assessment Tool: 11. Recreational Drug Use: Never Drug Type: Tobacco Use: Former Smoker Tobacco Type: Amount or Packs/day: How Many Years: Alcohol Use: No Frequency: Quant:
--- NOTE | 2019-02-21 12:55 | HPC ---
[facility] [address] [place] [address] PAIN MANAGEMENT CONSULTATION Name: AZEB BENDER Room #: REG [facility].#: [id number] Admission: 02/20/19 Attend Phys: Sameer Boston DO Discharge: Date of : 39 Report #: [id number] THIS REPORT FOR: //name// CC: Sameer Rubin DATE OF SERVICE: 02/20/2019 REFERRING PHYSICIAN: Dr. Solano. CHIEF COMPLAINT: Bilateral upper buttock pain, posterolateral thigh pain. HISTORY OF PRESENT ILLNESS: As you know, the patient is a 78-year-old female returning in followup visit with bilateral upper buttock and posterolateral thigh pain related to her SI joints. She is placing pain score 10/10. She states the pain is chronic in nature, aching and sharp in sensation, exacerbated with walking and standing, improves with lying down, medications and previous SI joint injections. As you are aware, the patient was seen by Dr. Ra Boston for a protracted period of time for bilateral SI joint issues and has undergone multiple injections. She returns today requesting those injections to be provided again. She denies new injury, new trauma or any changes in medical history from our visit of 01/16/2019. ALLERGIES: SULFA, CLAVULANIC ACID, AMOXICILLIN. CURRENT MEDICATIONS: See chart. SOCIAL HISTORY: The patient denies tobacco, alcohol, IV or illicit drug use. She is unaccompanied today. She is retired. IMAGING: No new imaging available. PQRS: The patient has known arthritic changes of the lumbar spine, bilateral SI joints, bilateral hands. No rheumatoid arthritis. She is placing pain intensity today at 10/10. She is a fall risk, but has not had a fall in last 3 months. She utilizes no ambulatory devices. She is not on blood thinners, but is treated for hypertension. She is on chronic opioids and has reportedly low opioid addiction potential based on our assessment tool. Functional assessment/pain impact 54/70 indicating severe interference of daily activities secondary to pain. PHYSICAL EXAMINATION: VITAL SIGNS: Blood pressure 117/73, pulse 63, respiratory rate 14 and unlabored. The patient is 98% on room air. Height 5 feet 6 inches tall, weight 162.2 pounds and BMI calculated 26.2[place] [address] PAIN MANAGEMENT CONSULTATION Name: AZEB BENDER Room #: REG [facility].#: [id number] Admission: 02/20/19 Attend Phys: Sameer Boston DO Discharge: Date of : 39 Report #: [id number] GENERAL: Well-developed, well-nourished, well-hydrated 78-year-old female, appears stated age, smells strongly of tobacco smoke, placing current pain score 10/10. HEENT: Normocephalic, atraumatic. Pupils equal, round, reactive to light. Speech fluent. EXTREMITIES: Show no clubbing, no cyanosis, and no edema. MUSCULOSKELETAL: The patient has tenderness to palpation over the bilateral SI joints, right greater than left. Deep palpation of the area causes intensification of typical pain. Seated straight leg raising remains negative. Supine straight leg raising positive only for SI joint pain. There are no typical symptoms noted with radicular components. Lumbar provocation testing is met with increased pain over the facet joints of the lumbar spine. ASSESSMENT: 1. Bilateral sacroiliac joint pain. 2. Bilateral sacroiliac joint arthritis. 3. Lumbosacral spondylosis without radiculopathy. 4. Facet arthropathy of the lumbar spine. 5. Chronic intractable pain. PLAN: 1. The patient has returned today in followup visit reporting pain score 10/10 indicating her right SI joint is much more intensely painful than her left, though both are providing of a dysfunction enough that she cannot go about her activities of daily living. She has made today's appointment to undergo bilateral SI joint injections under fluoroscopic guidance to address recurrent pain. The patient denies any injury or trauma that may have led to symptom development. She is not on any blood thinners precluding us from having the patient to undergo the procedure today. She has been advised risks and benefits of bilateral SI joint injection. She states she understood and wished to proceed. 2. No medication changes made at today's visit. The patient will continue current medical therapy as previously prescribed. 3. We will see the patient back in followup visit on an as needed basis for possible next in the series of bilateral SI joint injections to be performed under fluoroscopy. PROCEDURE NOTE DESCRIPTION OF PROCEDURE: Bilateral SI joint injections under fluoroscopic guidance. After obtaining written consent, the patient was taken back to fluoroscopy suite, placed in prone position with pillow under abdomen to decrease lumbar lordosis. Skin overlying the gluteal sacral area was then prepped and draped in aseptic fashion using chlorhexidine. [address] [address] PAIN MANAGEMENT CONSULTATION Name: AZEB BENDER Room #: REG [facility]#: [id number] Admission: 02/20/19 Attend Phys: Sameer Boston DO Discharge: Date of : 39 Report #: [id number] A medial to lateral projection allowed separation of the anterior and posterior branches of the joint space to be visualized. Skin and subcutaneous tissue overlying target sites of injections were then anesthetized with 3 mL of 1% lidocaine with a 27-gauge 1-1/4 inch needle. Two 22-gauge 3-1/2 inch spinal needles with bent tips were directed to the inferior aspect of the sacroiliac joint on the right and left side using a posterior approach. A "giving away" at the needle hub was noted once the dorsal sacroiliac and interosseous ligaments were engaged. After negative aspiration for heme at each site, 0.2 mL of Omnipaque injected on the right and on the left with excellent arthrograms bilaterally. Provocation responses consistent of intense buttock pain were negative. After negative aspiration for heme, 3 mL of a solution containing 1 mL 40 mg per mL, 40 mg total triamcinolone and 2 mL bupivacaine 0.5% was injected on the right and repeated on the left. [place] were then retracted approximately half way, flushed with 1 mL of 1% lidocaine and then removed. Sterile bandage was placed over injection site. There were no new motor deficits present in the lower extremities following procedure. The patient tolerated the procedure well, carefully escorted to recovery room in stable condition. No apparent complications. After meeting discharge criteria, the patient is discharged home. <ELECTRONICALLY SIGNED> By: Sameer Boston DO 02/21/19 1255 1252 2202 Sameer Boston, DO /nt
== END | disposition home or self-care (01) ==
LOC: PAIN 06:40
DX: M53.3 Sacrococcygeal disorders, not elsewhere classified (principal); M47.817 Spondylosis without myelopathy or radiculopathy, lumbosacral region; M47.816 Spondylosis without myelopathy or radiculopathy, lumbar region; G89.29 Other chronic pain; I10 Essential (primary) hypertension; M19.90 Unspecified osteoarthritis, unspecified site; Z98.890 Other specified postprocedural states; Z79.899 Other long term (current) drug therapy; Z88.2 Allergy status to sulfonamides; Z88.8 Allergy status to other drugs, medicaments and biological substances; Z79.891 Long term (current) use of opiate analgesic